=== PATIENT | male | born 1980 | race Two or more races ===

== ENCOUNTER 2018-05-29 14:41 | Emergency (ER) | payer SELFPAY ==
[2018-05-29 14:57] VITALS: BP 120/67; PULSE 72; RESP 16; TEMP 98.4; O2SAT 97
[2018-05-29] MEDS ORDERED: Lidocaine 5% Patch TD ONE (15:32)
[2018-05-29] MEDS: Lidocaine 5% Patch TD STA (15:39)
--- NOTE | 2018-05-29 15:46 | ED PDOC ---
HPI: Back Time Seen by Provider: 05/29/18 14:58 Chief Complaint (Nursing): Back Pain Chief Complaint (Provider): Back Pain History Per: Patient, [facility] ([id number]) History/Exam Limitations: no limitations Onset/Duration Of Symptoms: Days (x5) Current Symptoms Are (Timing): Still Present Additional Complaint(s): 37 year old male presents to the ED for evaluation of atraumatic non-radiating lower back pain, worse with ambulation for the last five days. He notes taking Tylenol without relief. Additionally, he reports increased urinary frequency at night for the last six months, but denies any dysuria, incontinence, or hematuria. Also denies taking any meds today, numbness, tingling, abdominal pain, nausea, vomiting, and fever. PMD: none provided Past Medical History Reviewed: Historical Data, Nursing Documentation, Vital Signs Vital Signs: Last Vital Signs Temp 98.4 F 05/29/18 14:53 Pulse 72 05/29/18 14:53 Resp 16 05/29/18 14:53 BP 120/67 05/29/18 14:53 Pulse Ox 97 05/29/18 14:53 - Medical History PMH: No Chronic Diseases - Family History Family History: States: Unknown Family Hx - Social History Current smoker - smoking cessation education provided: No Alcohol: None Drugs: Denies - Home Medications Home Medications: Ambulatory Orders Medication Instructions Recorded Cyclobenzaprine [Cyclobenzaprine 10 mg PO Q8 PRN #10 tab 05/29/18 HCl] Naproxen [Naprosyn] 500 mg PO BID PRN #30 tab 05/29/18 - Allergies Allergies/Adverse Reactions: Allergies Allergy/AdvReac Type Severity Reaction Status Date / Time No Known Allergies Allergy Verified 05/29/18 14:53 Review of Systems ROS Statement: Except As Marked, All Systems Reviewed And Found Negative Constitutional: Negative for: Fever Gastrointestinal: Negative for: Nausea, Vomiting, Abdominal Pain Genitourinary Male: Positive for: Frequency (especially at night). Negative for: Dysuria, Incontinence, Hematuria Musculoskeletal: Positive for: Back Pain (atraumatic non-radiating, worse with ambulating) Neurological: Negative for: Numbness (or tingling) Physical Exam - Reviewed Nursing Documentation Reviewed: Yes Vital Signs Reviewed: Yes - Physical Exam Appears: Positive for: No Acute Distress Skin: Positive for: Normal Color. Negative for: Rash Cardiovascular/Chest: Positive for: Regular Rate, Rhythm Respiratory: Positive for: Normal Breath Sounds. Negative for: Respiratory Distress Back: Positive for: Normal Inspection, Muscle Spasm (bilateral para lumbar). Negative for: L CVA Tenderness, R CVA Tenderness, Vertebral Tenderness - Laboratory Results Urine dip results: Negative for: Leukocyte Esterase, Blood, Nitrate, Ketones, Glucose, Bilirubin, Protein - ECG O2 Sat by Pulse Oximetry: 97 (RA) Pulse Ox Interpretation: Normal - Radiology X-Ray: Interpreted by Me (LS spine x-ray) X-Ray Interpretation: No Acute Disease Medical Decision Making Medical Decision Making: Time: 1515 Initial Impression: back pain, urinary frequency Initial Plan: --U-dip --Flexeril 10mg PO --Lidoderm 5% 1 ea TD --Toradol 30mg IM --LS Spine XR Scribe Attestation: Documented by Vernell Morris, acting as a scribe for Isael Young PA-C. Provider Scribe Attestation: All medical record entries made by the Scribe were at my direction and personally dictated by me. I have reviewed the chart and agree that the record accurately reflects my personal performance of the history, physical exam, medical decision making, and the department course for this patient. I have also personally directed, reviewed, and agree with the discharge instructions and disposition. Disposition - Clinical Impression Clinical Impression: Low back pain, Nocturia - Patient ED Disposition Is Patient to be Admitted: No - Disposition Referrals: [facility] [Outside] Patrick Petersen MD [Medical Doctor] - Darryn Wu III, MD [Staff Provider] - Disposition: Routine/Home Disposition Time: 16:20 Condition: STABLE Additional Instructions: KRISTIE DOTSON, thank you for letting us take care of you today. Your provider was Jasvir Gunn MD and you were treated for LOWER BACK PAIN. The emergency medical care you received today was directed at your acute symptoms. If you were prescribed any medication, please fill it and take as directed. It may take several days for your symptoms to resolve. Return to the Emergency Department if your symptoms worsen, do not improve, or if you have any other problems. Please contact your doctor or call one of the physicians/clinics you have been referred to that are listed on the Patient Visit Information form that is included in your discharge packet. Bring any paperwork you were given at discharge with you along with any medications you are taking to your follow up visit. Our treatment cannot replace ongoing medical care by a primary care provider outside of the emergency department. Thank you for allowing the [facility] team to be part of your care today. If you had an X-Ray or CT scan: A Radiologist will review the ED reading if any change in treatment is needed we will contact you. If you had a blood, urine, or wound culture: It will take several days for the results, if any change in treatment is needed we will contact you. If you had an STI test: It will take 48 hours for the results. Please call after 1 week if you have not heard back. Prescriptions: Cyclobenzaprine [Cyclobenzaprine HCl] 10 mg PO Q8 PRN #10 tab PRN Reason: Muscle Spasm Naproxen [Naprosyn] 500 mg PO BID PRN #30 tab PRN Reason: Pain Instructions: Low Back Pain (DC) Forms: [facility] (Albanian) Print Language: OMANI
--- NOTE | 2018-05-29 16:26 | RAD ---
Date of service: 05/29/2018 PROCEDURE: Radiographs of the Lumbar Spine. HISTORY: pain COMPARISON: No prior. FINDINGS: BONES: Normal alignment. No listhesis. No fracture. DISC SPACES: Unremarkable. OTHER FINDINGS: None. IMPRESSION: Unremarkable radiographs of the lumbar spine.
== END 2018-05-29 17:52 | disposition home or self-care (01) ==
LOC: H.ER 14:41
DX: M54.5 Low back pain (principal); R35.1 Nocturia
CPT/HCPCS: 72100; 96372; 99283; J1885